=== PATIENT | male | born 1980 | race Two or more races ===

== ENCOUNTER 2017-02-16 22:45 | Inpatient (IN) | payer BC ==
[~2017-02-16] VITALS: Ht 172.7 cm; Wt 101.6 kg
[2017-02-16 23:08] VITALS: Ht 172.7 cm; Wt 101.6 kg
[2017-02-16 23:55] LABS: BASOPHIL % 0.4 % (0-2); PLATELET COUNT 296 x10^3mcL (130-400); RED CELL DISTRIBUTION WIDTH 14.5 % (11.5-14.5)
[2017-02-17 00:04] LABS: CALCIUM 8.7 mg/dL (8.5-10.1); CARBON DIOXIDE 24.8 mmol/L (21-32); CHLORIDE SERUM 101 mmol/L (98-107); GFR1 > 60 mL/min; GLUCOSE SERUM 109 mg/dL (74-106); POTASSIUM SERUM 3.3 mmol/L (3.5-5.1); SODIUM SERUM 137 mmol/L (136-145)
[2017-02-17 00:15] LABS: ALBUMIN 3.9 g/dL (3.4-5.0); ALKALINE PHOSPHATASE 86 U/L (46-116); ALT/SGPT 69 U/L (16-63); AMYLASE 42 U/L (25-115); AST/SGOT 43 U/L (15-37); BILIRUBIN TOTAL 0.5 mg/dL (0.20-1.00); LIPASE 99 IU/L (73-393); T4(THYROXINE) 6.2 ug/dL (4.7-13.3); TOTAL PROTEIN, SERUM 7.5 g/dL (6.4-8.2)
[2017-02-17 00:18] LABS: CHOLESTEROL 134 mg/dL (<200); HDL CHOLESTEROL 32 mg/dL (40-60)
[2017-02-17 01:12] LABS: UA SPECIFIC GRAVITY <=1.005 (1.005-1.035); microscopic required? YES; urine erythrocyte TRACE (NEGATIVE)
[2017-02-17 01:22] LABS: AMPHETAMINE QUAL UR NONE DETECTED (NEG <=1000)
[2017-02-17 03:57] VITALS: BP 120/69
[2017-02-17 07:31] LABS: BASOPHIL % 0.5 % (0-2); PLATELET COUNT 263 x10^3mcL (130-400)
[2017-02-17 07:36] LABS: RED CELL DISTRIBUTION WIDTH 14.6 % (11.5-14.5)
[2017-02-17 07:48] LABS: CALCIUM 7.8 mg/dL (8.5-10.1); CARBON DIOXIDE 25.2 mmol/L (21-32); CHLORIDE SERUM 109 mmol/L (98-107); CREATININE SERUM 0.8 mg/dL (0.7-1.3); GFR1 > 60 mL/min; GLUCOSE SERUM 98 mg/dL (74-106); MAGNESIUM 2.3 mg/dL (1.8-2.4); PHOSPHOROUS 3.6 mg/dL (2.5-4.9); POTASSIUM SERUM 4.2 mmol/L (3.5-5.1); SODIUM SERUM 142 mmol/L (136-145)
[2017-02-17 09:11] VITALS: BP 114/57
[2017-02-17 13:00] VITALS: BP 127/86
[2017-02-17 17:07] VITALS: BP 122/80
[2017-02-17 21:41] VITALS: BP 111/64
[2017-02-18 05:45] VITALS: BP 95/51
[2017-02-18 06:45] LABS: BASOPHIL % 0.7 % (0-2); PLATELET COUNT 264 x10^3mcL (130-400)
[2017-02-18 06:59] LABS: RED CELL DISTRIBUTION WIDTH 14.8 % (11.5-14.5)
[2017-02-18 07:21] LABS: CALCIUM 8.1 mg/dL (8.5-10.1); CHLORIDE SERUM 105 mmol/L (98-107); CREATININE SERUM 0.9 mg/dL (0.7-1.3); GFR1 > 60 mL/min; GLUCOSE SERUM 89 mg/dL (74-106); PHOSPHOROUS 3.3 mg/dL (2.5-4.9); POTASSIUM SERUM 4.1 mmol/L (3.5-5.1); SODIUM SERUM 140 mmol/L (136-145)
[2017-02-18] MEDS ORDERED: ATI1 PO (09:39)
[2017-02-18 09:45] VITALS: BP 134/68
[2017-02-18 10:22] VITALS: BP 134/68
[2017-02-18] MEDS ORDERED: FOL1 PO (10:48)
[2017-02-18] MEDS ORDERED: THI100 PO (10:48)
== END 2017-02-18 10:58 | disposition home or self-care (01) | DRG 896 ==
LOC: ED 22:45 → EDBEDREQ 02-17 00:21 → DU 02-17 00:21
PROVIDERS: Emergency Medicine; Family Medicine
DX: F10.129 Alcohol abuse with intoxication, unspecified (principal); G92 Toxic encephalopathy; E87.2 Acidosis; F14.10 Cocaine abuse, uncomplicated; E87.6 Hypokalemia; Z91.010 Allergy to peanuts; E11.9 Type 2 diabetes mellitus without complications; I10 Essential (primary) hypertension; F41.1 Generalized anxiety disorder; R31.9 Hematuria, unspecified
CPT/HCPCS: 76770; 83880; G0480; J2060; J2543; J3411; J3475; J3490; J7030; Q0092

== ENCOUNTER 2018-04-01 22:20 | Emergency (ER) | payer BC ==
[~2018-04-01] VITALS: Ht 170.2 cm; Wt 72.6 kg
[~2018-04-01 22:20] MED LIST: ATI1 PO; FOL1 PO; THI100 PO
[2018-04-01 22:34] VITALS: Ht 170.2 cm; Wt 72.6 kg
[2018-04-01 23:39] LABS: BASOPHIL % 0.3 % (0-2); PLATELET COUNT 313 x10^3mcL (130-400); RED CELL DISTRIBUTION WIDTH 13.7 % (11.5-14.5)
[2018-04-01 23:57] LABS: CALCIUM 8.2 mg/dL (8.5-10.1); CARBON DIOXIDE 19.6 mmol/L (21-32); CHLORIDE SERUM 95 mmol/L (98-107); CREATININE SERUM 1.1 mg/dL (0.7-1.3); GFR1 > 60 mL/min; GLUCOSE SERUM 117 mg/dL (74-106); SODIUM SERUM 130 mmol/L (136-145)
[2018-04-02 00:01] LABS: ALBUMIN 3.9 g/dL (3.4-5.0); ALKALINE PHOSPHATASE 96 U/L (46-116); ALT/SGPT 44 U/L (16-63); AST/SGOT 27 U/L (15-37); BILIRUBIN TOTAL 0.3 mg/dL (0.20-1.00)
[2018-04-02 01:06] LABS: AMPHETAMINE QUAL UR NONE DETECTED (See below)
[2018-04-02 03:43] VITALS: BP 116/76
== END 2018-04-02 03:43 | disposition home or self-care (01) ==
LOC: ED 22:20
PROVIDERS: Emergency Medicine
DX: F14.99 Cocaine use, unspecified with unspecified cocaine-induced disorder (principal); R07.89 Other chest pain; F10.99 Alcohol use, unspecified with unspecified alcohol-induced disorder; Z91.018 Allergy to other foods
CPT/HCPCS: G0480; J2060; J7030

== ENCOUNTER 2018-04-26 08:14 | Emergency (ER) | payer BC ==
[~2018-04-26] VITALS: Ht 170.2 cm; Wt 92.5 kg
[2018-04-26 08:20] VITALS: Ht 170.2 cm; Wt 92.5 kg
[2018-04-26 08:57] LABS: BASOPHIL % 0.8 % (0-2); PLATELET COUNT 309 x10^3mcL (130-400)
[2018-04-26 09:05] LABS: CALCIUM 8.8 mg/dL (8.5-10.1); CARBON DIOXIDE 26.2 mmol/L (21-32); CHLORIDE SERUM 102 mmol/L (98-107); GFR1 > 60 mL/min; GLUCOSE SERUM 104 mg/dL (74-106); POTASSIUM SERUM 3.8 mmol/L (3.5-5.1); SODIUM SERUM 139 mmol/L (136-145)
[2018-04-26 09:10] LABS: ALKALINE PHOSPHATASE 83 U/L (46-116); ALT/SGPT 39 U/L (16-63); AST/SGOT 33 U/L (15-37); BILIRUBIN TOTAL 0.56 mg/dL (0.20-1.00); MAGNESIUM 2.1 mg/dL (1.8-2.4)
[2018-04-26 11:37] VITALS: BP 132/82
== END 2018-04-26 11:37 | disposition home or self-care (01) ==
LOC: ED 08:14
PROVIDERS: Emergency Medicine
DX: R07.89 Other chest pain (principal); R51 Headache; F14.10 Cocaine abuse, uncomplicated; F10.10 Alcohol abuse, uncomplicated; Z91.018 Allergy to other foods
CPT/HCPCS: G0480; J2060; J3411; J3475; J3490; J7030

== ENCOUNTER 2018-12-23 06:17 | Emergency (ER) | payer BC ==
[~2018-12-23] VITALS: Ht 170.2 cm; Wt 87.1 kg
[2018-12-23 07:15] LABS: CALCIUM 8.8 mg/dL (8.5-10.1); CARBON DIOXIDE 28.8 mmol/L (21-32); CHLORIDE SERUM 102 mmol/L (98-107); CREATININE SERUM 1.1 mg/dL (0.7-1.3); GFR1 > 60 mL/min; GLUCOSE SERUM 125 mg/dL (74-106); SODIUM SERUM 139 mmol/L (136-145)
[2018-12-23 07:19] LABS: ALKALINE PHOSPHATASE 91 U/L (46-116); ALT/SGPT 26 U/L (16-63); AST/SGOT 20 U/L (15-37); LIPASE 113 IU/L (73-393); TOTAL PROTEIN, SERUM 7.8 g/dL (6.4-8.2)
[2018-12-23 10:06] VITALS: BP 141/69
[2018-12-23 10:06] LABS: RED CELL DISTRIBUTION WIDTH 13.4 % (11.5-14.5)
[2018-12-23 10:07] LABS: PLATELET COUNT 254 x10^3mcL (130-400)
[2018-12-23 10:17] LABS: PATH REVIEW for HEMA NO
== END 2018-12-23 10:06 | disposition home or self-care (01) ==
LOC: ED 06:17
PROVIDERS: Emergency Medicine
DX: R11.10 Vomiting, unspecified (principal); R19.7 Diarrhea, unspecified; R42 Dizziness and giddiness; R53.1 Weakness; Z91.018 Allergy to other foods
CPT/HCPCS: J2405; J3490; J7030

== ENCOUNTER 2019-01-27 22:24 | Emergency (ER) | payer SELFPAY ==
[~2019-01-27] VITALS: Ht 172.7 cm; Wt 86.2 kg
[2019-01-27 22:33] VITALS: Ht 172.7 cm; Wt 86.2 kg
[2019-01-27 22:48] VITALS: BP 117/72
== END 2019-01-27 22:49 | disposition other institution (70) ==
LOC: ED 22:24
DX: S60.415A Abrasion of left ring finger, initial encounter (principal); F10.129 Alcohol abuse with intoxication, unspecified; Z13.89 Encounter for screening for other disorder; Z91.018 Allergy to other foods; W22.8XXA Striking against or struck by other objects, initial encounter; Y93.89 Activity, other specified; Y92.89 Other specified places as the place of occurrence of the external cause; Y99.8 Other external cause status

== ENCOUNTER 2019-01-27 22:24 | Emergency (ER) | payer OTHER | END 2019-01-27 22:49 | disposition other institution (70) | LOC: ED 22:24 | DX: Z02.89 Encounter for other administrative examinations (principal) ==

== ENCOUNTER 2019-03-18 03:16 | Emergency (ER) | payer SELFPAY ==
[~2019-03-18] VITALS: Ht 177.8 cm; Wt 88.5 kg
[2019-03-18 03:17] VITALS: Ht 177.8 cm; Wt 88.5 kg
[2019-03-18 04:32] LABS: BASOPHIL % 0.7 % (0-2); PLATELET COUNT 325 x10^3mcL (130-400); RED CELL DISTRIBUTION WIDTH 13.9 % (11.5-14.5)
[2019-03-18 04:51] LABS: CARBON DIOXIDE 23.8 mmol/L (21-32); CHLORIDE SERUM 98 mmol/L (98-107); GFR1 > 60 mL/min; GLUCOSE SERUM 121 mg/dL (74-106); POTASSIUM SERUM 3.6 mmol/L (3.5-5.1); SODIUM SERUM 134 mmol/L (136-145)
[2019-03-18 04:52] LABS: ALKALINE PHOSPHATASE 103 U/L (46-116); ALT/SGPT 25 U/L (16-63); AST/SGOT 14 U/L (15-37); BILIRUBIN TOTAL 0.34 mg/dL (0.20-1.00); CALCIUM 8.7 mg/dL (8.5-10.1); TOTAL PROTEIN, SERUM 8.6 g/dL (6.4-8.2)
[2019-03-18 07:00] VITALS: BP 148/69
[2019-03-18 07:54] LABS: AMPHETAMINE QUAL UR NONE DETECTED (See below)
== END 2019-03-18 07:00 | disposition home or self-care (01) ==
LOC: ED 03:16
PROVIDERS: Emergency Medicine
DX: F19.10 Other psychoactive substance abuse, uncomplicated (principal); Z91.018 Allergy to other foods
CPT/HCPCS: J2060; J7030; Q0092

== ENCOUNTER 2019-08-06 17:22 | Inpatient (IN) | payer BC ==
[~2019-08-06] VITALS: Ht 172.7 cm; Wt 94.3 kg
--- NOTE | 2019-08-06 17:40 | NUR ---
PT BIB C/O COCAINE OVERDOSE. PT REPORTS "I TOOK TOO MUCH COCAINE AND BLACKED OUT TODAY." PT REPORTS HX OF COCAINE ABUSE. PT AAOX4, COOPERATIVE, AND RESPIRATION E/U. PT IS AMBULATORY AND NO ADDITIONAL DISTRESS IS NOTED AT THIS TIME.
[2019-08-06 17:55] LABS: BASOPHIL % 0.5 % (0-2); PLATELET COUNT 311 x10^3mcL (130-400); RED CELL DISTRIBUTION WIDTH 13.6 % (11.5-14.5)
[2019-08-06 18:03] LABS: ALKALINE PHOSPHATASE 91 U/L (46-116); ALT/SGPT 32 U/L (16-63); AST/SGOT 37 U/L (15-37); BILIRUBIN TOTAL 1.4 mg/dL (0.20-1.00); CALCIUM 8.3 mg/dL (8.5-10.1); CHLORIDE SERUM 88 mmol/L (98-107); GFR1 > 60 mL/min; GLUCOSE SERUM 95 mg/dL (74-106); POTASSIUM SERUM 3.2 mmol/L (3.5-5.1); TOTAL PROTEIN, SERUM 7.5 g/dL (6.4-8.2)
[2019-08-06 18:06] LABS: SODIUM SERUM 124 mmol/L (136-145)
--- NOTE | 2019-08-06 18:09 | NUR ---
DR LARSEN AT BEDSIDE TO DISCUSS PLAN OF CARE WITH PT.
--- NOTE | 2019-08-06 18:12 | NUR ---
DR LARSEN ORDERED TO STOP NS BOLUS PER CRITICAL VALUE: NA 124. BOLUS STOPPED. ROUGHLY 680ML INFUSED. PT LAYING IN GURNEY H/F. RESPIRATIONS E/U, AAOX4. NO DISTRESS NOTED AT THIS TIME.
[2019-08-06 18:58] LABS: microscopic required? NO
--- NOTE | 2019-08-06 19:05 | NUR ---
PT LAYING S/F, RESPIRATIONS E/U. NO DISTRESS NOTED AT THIS TIME. CHANGED PT'S SHEETS AND GOWN HE URINATED ON THE GURNEY TRYING TO USE THE URINAL. PT ANXIOUS AND KEEPS ASKING IF HE IS "GOING TO BE OK."
[2019-08-06 19:06] LABS: UA SPECIFIC GRAVITY <=1.005 (1.005-1.035); urine erythrocyte NEGATIVE (NEGATIVE)
--- NOTE | 2019-08-06 19:14 | NUR ---
PT DENIES TAKING HOME MEDS. PREVIOUS MEDS ON MED REC THAT PT DENIES TAKING AT THIS TIME.
--- NOTE | 2019-08-06 19:16 | NUR ---
REPORT GIVEN TO MARBELLA GRANADOS. ASSUMED ALL CARE OF PT.
--- NOTE | 2019-08-06 19:17 | NUR ---
REPORT GIVEN TO MARBELLA GRANADOS. ASSUMED ALL CARE OF PT.
--- NOTE | 2019-08-06 19:19 | NUR ---
REPORT RECEIVED FROM JAUN GRANADOS TO ASSUME CARE OF PATIENT.
[2019-08-06 19:28] LABS: T3 TOTAL 0.94 ng/mL
[2019-08-06 19:31] LABS: FREE T4 1.3 ng/dL (0.76-1.46); FREE THYROXINE INDEX 3.3 ug/dL (1.4-4.5); T4(THYROXINE) 8.7 ug/dL (4.7-13.3)
--- NOTE | 2019-08-06 19:40 | NUR ---
REPORT GIVEN TO ELIAN GRANADOS IN TELE TO ASSUME CARE OF PT.
--- NOTE | 2019-08-06 19:48 | NUR ---
PT TRANSFERRED TO [facility]/TELE [facility]IA [facility] BY JUSTO GRANADOS AND NEFTALI EMT.
--- NOTE | 2019-08-06 19:50 | NUR ---
RECEIVED PT FROM ED [facility]IA [facility], PT IS AAOX4. DENIES HEADACHE/DIZZINESS. ABLE TO FOLLOW COMMANDS. NO SOB NOTED, LUNG SOUNDS CTA, O2 SAT=99%, RA. DENIES CHEST PAIN/PRESSURE, SR ON THE MONITOR. DENIES ABDOMINAL DISCOMFORT. BOWEL SOUNDS ACTIVE. IV SITE PATENT AND INTACT. PT STATED THAT HE FEELS VERY PARANOID. ANXIOUS BUT COOPERATIVE TO CARE. CALL LIGHT ON REACH. HOB ELEVATED AT 30 DEG. SIDE RAILS UPX2. ENDORSED TO PRIMARY NURSE FACUNDO FOR CONTINUITY OF CARE
--- NOTE | 2019-08-06 20:00 | NUR ---
RECEIVED PT FROM ELIAN GRANADOS. PT STATING HE FEELS PARANOID, ASKING IF HE IS GOING TO LIVE. REASSURED PT. ABLE TO CALM PT DOWN. SIDE RAILS UP X2. ORIENTED PT TO ROOM AND SURROUNDINGS. CALL LIGHT WITHIN REACH. BED IN LOWEST POSITION. WILL CONTINUE TO MONITOR.
[2019-08-06 20:11] VITALS: BP 151/79
[2019-08-06 20:13] VITALS: Ht 172.7 cm; Wt 94.3 kg
--- NOTE | 2019-08-06 20:13 | NUR ---
PT ANXIOUS/PARANOID. MADE DR GUNN AWARE. ORDERED ATIVAN 1MG IV Q4H PRN. DR GUNN STATED HE WILL INPUT ORDERS SOON. WILL CONTINUE TO MONITOR.
--- NOTE | 2019-08-06 20:31 | NUR ---
ADMINSTERED ATIVAN 1MG PER MAR ORDER. PT STATING "PLEASE SAVE ME" ADMINISTERING. ABLE TO REASSURE PT. WILL CONTINUE TO MONITOR.
--- NOTE | 2019-08-06 22:06 | NUR ---
SPOKE TO NICOLAS GARCIA () AND UPDATED ON POC FOR PT. [phone]
--- NOTE | 2019-08-06 23:21 | NUR ---
PT RESTING COMFORTABLY. BREATHING IS EVEN AND UNLABORED ON RA. NO RESP DISTRESS NOTED. WILL CONTINUE TO MONITOR
--- NOTE | 2019-08-07 01:15 | NUR ---
PT RESTING COMFORTBALY. STATES HE FEELS BETTER NOW, A LITTLE LESS ANXIOUS. DENIES ANY PAIN OR SOB. WILL CONTINUE TO MONITOR.
--- NOTE | 2019-08-07 02:15 | NUR ---
PT SOILED HIMSELF. CHANGED BED SHEETS, GOWN. INSTRUCTED PT TO USE URINAL TO COLLECT SAMPLE. PT VERBALIZES UNDERSTANDING. WILL CONTINUE TO MONITOR.
--- NOTE | 2019-08-07 05:59 | NUR ---
PT RESTED COMFORTABLY THROUGHT THE NIGHT WITH NO ACUTE EVENTS OCCURRING DURING THE SHIFT. NO URINE NOTED IN URINAL. WILL REINFORCE TEACHING AND MAKE DAY SHIFT NURSE AWARE. COMFORT AND SAFETY MEASURES MAINTAINED. ALL NEEDS ASSESSED AND ATTENDED TO. WILL CONTINUE TO MONITOR AND ENDORSE CARE TO DAY SHIFT NURSE.
[2019-08-07 06:07] VITALS: BP 122/62
[2019-08-07 07:13] LABS: BASOPHIL % 0.5 % (0-2); PLATELET COUNT 287 x10^3mcL (130-400); RED CELL DISTRIBUTION WIDTH 13.8 % (11.5-14.5)
--- NOTE | 2019-08-07 07:25 | NUR ---
AAO X4.DENIES ANY PAIN/DICOMFORT.LUNGS CLEAR.ON ST ON THE MONITOR.OL=685.IVF NS GOING AT 10 ML/HR INFUSING WELL.SIDE RAILS PADDED FOR SEIZURE PRECAUTION DUE TO LOW NA.CALL LIGHT WITHIN REACH.INSTRUCTED TO CALL FOR ANY PAIN/DISCOMFORT.WILL CONTINUE TO MONITOR PT.
[2019-08-07 07:32] LABS: CALCIUM 8.5 mg/dL (8.5-10.1); CARBON DIOXIDE 28.6 mmol/L (21-32); CHLORIDE SERUM 103 mmol/L (98-107); CREATININE SERUM 1.1 mg/dL (0.7-1.3); GFR1 > 60 mL/min; GLUCOSE SERUM 80 mg/dL (74-106); POTASSIUM SERUM 3.9 mmol/L (3.5-5.1); SODIUM SERUM 139 mmol/L (136-145)
[2019-08-07 08:22] VITALS: BP 116/72
[2019-08-07 13:03] VITALS: BP 116/72
[2019-08-07 13:44] VITALS: BP 118/82
--- NOTE | 2019-08-07 14:20 | NUR ---
PT D/C TO HOME IV AND MONITOR D/C'D.WANTED TO HAVE PRESCRIPTION FOR ANXIETY.PAGED .DISCHARGE INSTRUCTION GIVEN.PT VEBALIZES UNDERSTANDING.
--- NOTE | 2019-08-07 14:33 | NUR ---
SPOKE WITH WILL CALL FOR HIS PRESCRIPTION MEDS.WENT DOWN AMBULATORY ACCOMPANIED BY RN. WAITING OUTSIDE.
== END 2019-08-07 14:28 | disposition home or self-care (01) | DRG 641 ==
LOC: ED 17:22 → DU 19:00 → MU 20:05 → DU 20:06
PROVIDERS: Emergency Medicine; ADMIT Internal Medicine; ATTEND Internal Medicine
DX: E87.1 Hypo-osmolality and hyponatremia (principal); F41.9 Anxiety disorder, unspecified; F10.129 Alcohol abuse with intoxication, unspecified; F14.120 Cocaine abuse with intoxication, uncomplicated; Y90.9 Presence of alcohol in blood, level not specified; K21.9 Gastro-esophageal reflux disease without esophagitis; D72.829 Elevated white blood cell count, unspecified; E87.6 Hypokalemia
CPT/HCPCS: 84439; G0378; J2060; J7030; Q0092

== ENCOUNTER 2019-09-17 13:20 | Emergency (ER) | payer BC ==
[~2019-09-17] VITALS: Ht 172.7 cm; Wt 86.2 kg
[2019-09-17 13:34] VITALS: Ht 172.7 cm; Wt 86.2 kg
[2019-09-17 15:15] LABS: BASOPHIL % 0.3 % (0-2); PLATELET COUNT 353 x10^3mcL (130-400); RED CELL DISTRIBUTION WIDTH 13.7 % (11.5-14.5)
[2019-09-17 15:21] LABS: AMPHETAMINE QUAL UR NONE DETECTED (See below)
[2019-09-17 15:25] LABS: CALCIUM 8.8 mg/dL (8.5-10.1); CARBON DIOXIDE 29.5 mmol/L (21-32); CHLORIDE SERUM 100 mmol/L (98-107); GFR1 > 60 mL/min; GLUCOSE SERUM 88 mg/dL (74-106); POTASSIUM SERUM 3.8 mmol/L (3.5-5.1); SODIUM SERUM 140 mmol/L (136-145)
[2019-09-17 15:30] LABS: ALKALINE PHOSPHATASE 80 U/L (46-116); ALT/SGPT 29 U/L (16-63); AST/SGOT 29 U/L (15-37); BILIRUBIN TOTAL 0.8 mg/dL (0.20-1.00); TOTAL PROTEIN, SERUM 7.7 g/dL (6.4-8.2)
[2019-09-17 17:40] VITALS: BP 133/83
== END 2019-09-17 17:40 | disposition home or self-care (01) ==
LOC: ED 13:20
PROVIDERS: Student in an Organized Health Care Education/Training Program
DX: F14.10 Cocaine abuse, uncomplicated (principal); F19.10 Other psychoactive substance abuse, uncomplicated; R00.2 Palpitations; R51 Headache
CPT/HCPCS: G0480; J2060; Q0092